=== PATIENT | female | born 1970 | race Caucasian/White ===

== ENCOUNTER → 2016-06-26 | Day surgery (SDC) | payer OTHER ==
[2016-06-12 13:55] VITALS: Ht 157.5 cm; Wt 113.6 kg
[~2016-06-26] VITALS: Ht 157.5 cm; Wt 113.6 kg
[~2016-06-26] MED LIST: CHOL20009 PO; CLR10 PO; CYCL5TAB PO; LIDOCAINE HCL 2% 2 ML VIAL (20MG/ML) ONE; LISI-725 PO; LISI-789 PO; LOPE1TAB25 PO; MIDAZOLAM HCL 1 MG/ML 2ML VIAL ONE; ONDANSETRON INJ 2 MG/ML 2 ML VIAL ONE; OXYC1CAP5 PO; PROPOFOL IV EMULSION 10 MG/ML 20 ML VIAL IV ONE; RANI150T3 PO; RMCI IV; SUMA25TA12 PO
--- NOTE | 2016-06-26 11:10 | Endo History and Physical ---
History & Physical Date of Service: Jun 26, 2016. Chief Complaint: GERD Referring Physician: History of Present Illness 45 yo CF who presents for EGD secondary to GERD. Past Medical History Gastrointestinal Disorder, Reflux Past Surgical History Hx Cardiac Surgery: No Hx Internal Defibrillator: No Hx Pacemaker: No Hx Abdominal Surgery: Yes (SM BOWEL RESECTION, LAP SRAVAN) Hx of Implantable Prosthesis: No Hx Post-Op Nausea and Vomiting: No Hx Cancer Surgery: No Hx Thoracic Surgery: No Hx Orthopedic: Yes (RT/LEFT KNEE ARTHROSCOPY) Hx Urinary Tract Surgery: No Family History IBD Social History Smoking Status: Never Smoker Hx Substance Use: Yes (SEE MED REC) Hx Alcohol Use: No Allergies Coded Allergies: Penicillins (Verified Allergy, Unknown, UNKNOWN RX - HAPPENED CHILD, ) Current Medications Reported Home Medications Medications Dose Route/Sig Max Daily Dose Days Date Category Dose Instructions Remicade (Infliximab) 100 Mg/10 Ml Inj IV DIRECTED 06/26/16 Reported patient unsure of dosage Imitrex (Sumatriptan Succinate) 25 Mg Tab 25 Mg PO UD PRN 06/12/16 Reported Zestril (Lisinopril) Unknown Strength Tab 1 Tab PO HS 06/12/16 Reported Flexeril (Cyclobenzaprine Hcl) 5 Mg Tab 5 Mg PO BID 06/12/16 Reported PRN Oxycodone Hcl 5 Mg Cap 1 Cap PO BID-QID PRN 06/12/16 Reported Claritin (Loratadine) 10 Mg Tab 10 Mg PO QAM 11/04/14 Reported Zantac (Ranitidine HCl) 150 Mg Tab 150 Mg PO BID 06/12/14 Reported Loperamide Hcl 2 Mg Tab 1-2 Cap PO QID PRN 06/10/14 Reported Vital Signs Weight (Kilograms): 113.64 Height (Feet): 5 Height (Inches): 2 Date Time Temp Pulse Resp B/P Pulse Ox O2 Delivery O2 Flow Rate FiO2 06/26/16 10:43 37 97 20 137/79 100 Room Air Physical Exam General Appearance: WD/WN, no apparent distress Respiratory/Chest: Auscultation: breath sounds normal Cardiovascular: Heart Auscultation: RRR Abdomen: Bowel Sounds: normal Inspection & Palpation: soft, non-distended, no tenderness, guarding & rebound Assessment and Plan Assessment: 45 yo CF who presents for EGD secondary to GERD. Plan: Proceed with EGD.
--- NOTE | 2016-06-26 11:53 | Discharge Instructions ---
Endoscopy Patient Instructions Date / Procedure(s) Performed Jun 26, 2016. EGD Allergy Information Coded Allergies: Penicillins (Verified Allergy, Unknown, UNKNOWN RX - HAPPENED CHILD, ) Discharge Date / Findings Jun 26, 2016. Gastritis s/p biopsies Hiatal hernia Distal Esophageal biopsies Mid-esophageal biopsies Provider Instructions Activity Restrictions - No exercising or heavy lifting for 24 hours. - Do not drink alcohol the day of the procedure. - Do not drive a car or operate machinery until the day after the procedure. - Do not make any important decisions or sign important papers in 24 hours after the procedure. Following Day: - Return to full activity which may include returning to work/school. Diet Start your diet with liquids and light foods (jello, soup, juice, toast). Then eat your usual diet if not nauseated. Treatment For Common After Affects For mild abdominal pain, bloating, or excessive gas: - Rest - Eat lightly - Lie on right side Follow-Up Information Follow-up with as scheduled Anesthesia Information What You Should Know You have had a procedure that required some medicine to reduce anxiety and discomfort. This treatment is called moderate sedation. After receiving the treatment, you may be sleepy, but you will be able to breathe on your own. The effects of the treatment may last for several hours. Follow these instructions along with Activity/Diet recommendations noted above: * Do NOT do anything where dizziness or clumsiness would be dangerous. * Rest quietly at home today, then you can be up and about tomorrow. * Have a responsible person stay with you the rest of today. * You may have had an I.V. today. If so, you may take the dressing off later today. Recommendations Call your doctor if: * Trouble breathing * Continuous vomiting for more than 24 hours * Temperature above 101 degrees * Severe abdominal pain or bloating * Pain not relieved by pain medicine ordered * There is increased drainage or redness from any incision * A large amount of rectal bleeding greater than 2-3 tablespoons. (If you had a polyp/s removed or have hemorrhoids, a small amount of blood - from the rectum is to be expected.) * You have any unanswered questions or concerns. IN THE EVENT OF A SERIOUS EMERGENCY, GO TO THE NEAREST EMERGENCY ROOM Your discharge instructions were prepared by provider Brice Nunez. Patient Instructions Signature Page Mary Jane Holman Patient (or Guardian) Signature/Date: I have read and understand the instructions given to me by my caregivers. Caregiver/RN/Doctor Signature/Date: The above-named patient and/or guardian has received patient instructions on this date. + Original Patient Signature Page (only) stays with chart. Please make copy for patient.
--- NOTE | 2016-06-26 12:02 | GI REPORT ---
Procedure Date: 06/26/2016 11:24 AM Procedure: Upper GI endoscopy Indications: Gastro-esophageal reflux disease Medicines: Monitored Anesthesia Care Complications: No immediate complications. Estimated Blood Loss: Estimated blood loss: none. Procedure: Pre-Anesthesia Assessment: - Prior to the procedure, a History and Physical was performed, and patient medications and allergies were reviewed. The patient's tolerance of previous anesthesia was also reviewed. The risks and benefits of the procedure and the sedation options and risks were discussed with the patient. All questions were answered, and informed consent was obtained. Prior Anticoagulants: The patient has taken no previous anticoagulant or antiplatelet agents. ASA Grade Assessment: III - A patient with severe systemic disease. After reviewing the risks and benefits, the patient was deemed in satisfactory condition to undergo the procedure. After obtaining informed consent, the endoscope was passed under direct vision. Throughout the procedure, the patient's blood pressure, pulse, and oxygen saturations were monitored continuously. The scope was introduced through the mouth, and advanced to the second part of duodenum. The upper GI endoscopy was accomplished without difficulty. The patient tolerated the procedure well. Findings: Four biopsies were obtained with cold forceps for evaluation of eosinophilic esophagitis in the middle third of the esophagus. The Z-line was irregular. Biopsies were taken with a cold forceps for histology. A small hiatus hernia was present. Localized mild inflammation characterized by erythema was found in the gastric antrum. Biopsies were taken with a cold forceps for histology. The examined duodenum was normal. Impression: - Z-line irregular. Biopsied. - Small hiatus hernia. - Gastritis. Biopsied. - Normal examined duodenum. - Biopsy performed in the middle third of the esophagus. Recommendation: - Resume previous diet. - Continue present medications. - Await pathology results. - Return to GI office as previously scheduled. Brice Nunez DO 06/26/2016 12:02:01 PM This report has been signed electronically. Note Initiated On: 06/26/2016 11:24 AM I attest to the content of the Intraoperative Record and orders documented therein, exceptions below
--- NOTE | 2016-06-26 12:06 | Anesthesiology Progress Note ---
Anesthesia Post Op Note Date & Time Jun 26, 2016 at 12:07 Vital Signs Pain Intensity: 0 Vital Signs Past 12 Hours Date Time Temp Pulse Resp B/P Pulse Ox O2 Delivery O2 Flow Rate FiO2 06/26/16 10:43 37 97 20 137/79 100 Room Air Notes Mental Status: alert / awake / arousable, participated in evaluation Pt Amnestic to Procedure: Yes Nausea / Vomiting: adequately controlled Pain: adequately controlled Airway Patency, RR, SpO2: stable & adequate BP & HR: stable & adequate Hydration State: stable & adequate Anesthetic Complications: no major complications apparent
[2016-06-26 12:20] VITALS: BP 109/65; PULSE 78; O2SAT 98
== END | disposition home or self-care (01) ==
LOC: C.GI 10:06
PROVIDERS: ATTEND Internal Medicine
DX: K29.50 Unspecified chronic gastritis without bleeding (principal); K21.9 Gastro-esophageal reflux disease without esophagitis; K44.9 Diaphragmatic hernia without obstruction or gangrene; Z80.0 Family history of malignant neoplasm of digestive organs

== ENCOUNTER → 2016-08-04 | Day surgery (SDC) | payer OTHER ==
[2016-08-03 13:57] VITALS: Ht 157.5 cm; Wt 113.6 kg
[~2016-08-04] VITALS: Ht 157.5 cm; Wt 113.6 kg
[~2016-08-04] MED LIST changes: +ATROPINE SULFATE 0.1 MG/ML 5ML SYR IV PRN; +EpHEDrine SULFATE INJ 50 MG/ML AMP IV PRN; -LISI-725 PO; -SUMA25TA12 PO
--- NOTE | 2016-08-04 09:49 | Endo History and Physical ---
History & Physical Date of Service: Aug 04, 2016. Chief Complaint: Crohn's Referring Physician: Dr Jordan History of Present Illness 45 yo CF who presents for Colonoscopy secondary to Crohn's Disease. Past Medical History Gastrointestinal Disorder, Reflux Past Surgical History Hx Cardiac Surgery: No Hx Internal Defibrillator: No Hx Pacemaker: No Hx Abdominal Surgery: Yes (SM BOWEL RESECTION, LAP SRAVAN) Hx of Implantable Prosthesis: No Hx Post-Op Nausea and Vomiting: No Hx Cancer Surgery: No Hx Thoracic Surgery: No Hx Orthopedic: Yes (RT/LT KNEE ARTHROSCOPY) Hx Urinary Tract Surgery: No Family History IBD Social History Smoking Status: Never Smoker Hx Substance Use: Yes (SEE MED LIST) Hx Alcohol Use: No Allergies Coded Allergies: Penicillins (Verified Allergy, Unknown, UNKNOWN RX - HAPPENED CHILD, 08/03/16) Current Medications Reported Home Medications Medications Dose Route/Sig Max Daily Dose Days Date Category Dose Instructions Zestril (Lisinopril) 2.5 Mg Tab 1 Tab PO HS 08/03/16 Reported Vitamin D (Cholecalciferol) 2,000 Unit Tab 1 Tab PO QAM 08/03/16 Reported Remicade (Infliximab) 100 Mg/10 Ml Inj IV DIRECTED 06/26/16 Reported patient unsure of dosage Flexeril (Cyclobenzaprine Hcl) 5 Mg Tab 5 Mg PO BID PRN 06/12/16 Reported PRN Oxycodone Hcl 5 Mg Cap 1 Cap PO BID-QID PRN 06/12/16 Reported Claritin (Loratadine) 10 Mg Tab 10 Mg PO QAM 11/04/14 Reported Zantac (Ranitidine HCl) 150 Mg Tab 150 Mg PO BID 06/12/14 Reported Loperamide Hcl 2 Mg Tab 1-2 Cap PO QID PRN 06/10/14 Reported Vital Signs Weight (Kilograms): 113.64 Height (Feet): 5 Height (Inches): 2 Physical Exam General Appearance: WD/WN, no apparent distress Respiratory/Chest: Auscultation: breath sounds normal Cardiovascular: Heart Auscultation: RRR Abdomen: Bowel Sounds: normal Inspection & Palpation: soft, non-distended, no tenderness, guarding & rebound Assessment and Plan Assessment: 45 yo CF who presents for Colonoscopy secondary to Crohn's Disease. Plan: Proceed with colonoscopy.
--- NOTE | 2016-08-04 11:15 | Discharge Instructions ---
Endoscopy Patient Instructions Date / Procedure(s) Performed Aug 04, 2016. Colonoscopy Allergy Information Coded Allergies: Penicillins (Verified Allergy, Unknown, UNKNOWN RX - HAPPENED CHILD, 08/03/16) Discharge Date / Findings Aug 04, 2016. Crohn's Ileitis s/p biopsies Random colon biopsies Medication Instructions OK to resume all medications today as prescribed Reported Home Medications Medications Dose Route/Sig Max Daily Dose Days Date Category Dose Instructions Zestril (Lisinopril) 2.5 Mg Tab 1 Tab PO HS 08/03/16 Reported Vitamin D (Cholecalciferol) 2,000 Unit Tab 1 Tab PO QAM 08/03/16 Reported Remicade (Infliximab) 100 Mg/10 Ml Inj IV DIRECTED 06/26/16 Reported patient unsure of dosage Flexeril (Cyclobenzaprine Hcl) 5 Mg Tab 5 Mg PO BID PRN 06/12/16 Reported PRN Oxycodone Hcl 5 Mg Cap 1 Cap PO BID-QID PRN 06/12/16 Reported Claritin (Loratadine) 10 Mg Tab 10 Mg PO QAM 11/04/14 Reported Zantac (Ranitidine HCl) 150 Mg Tab 150 Mg PO BID 06/12/14 Reported Loperamide Hcl 2 Mg Tab 1-2 Cap PO QID PRN 06/10/14 Reported Provider Instructions Activity Restrictions - No exercising or heavy lifting for 24 hours. - Do not drink alcohol the day of the procedure. - Do not drive a car or operate machinery until the day after the procedure. - Do not make any important decisions or sign important papers in 24 hours after the procedure. Following Day: - Return to full activity which may include returning to work/school. Diet Start your diet with liquids and light foods (jello, soup, juice, toast). Then eat your usual diet if not nauseated. Treatment For Common After Affects For mild abdominal pain, bloating, or excessive gas: - Rest - Eat lightly - Lie on right side Follow-Up Information Follow-up with Dr Jordan as scheduled Anesthesia Information What You Should Know You have had a procedure that required some medicine to reduce anxiety and discomfort. This treatment is called moderate sedation. After receiving the treatment, you may be sleepy, but you will be able to breathe on your own. The effects of the treatment may last for several hours. Follow these instructions along with Activity/Diet recommendations noted above: * Do NOT do anything where dizziness or clumsiness would be dangerous. * Rest quietly at home today, then you can be up and about tomorrow. * Have a responsible person stay with you the rest of today. * You may have had an I.V. today. If so, you may take the dressing off later today. Recommendations Call your doctor if: * Trouble breathing * Continuous vomiting for more than 24 hours * Temperature above 101 degrees * Severe abdominal pain or bloating * Pain not relieved by pain medicine ordered * There is increased drainage or redness from any incision * A large amount of rectal bleeding greater than 2-3 tablespoons. (If you had a polyp/s removed or have hemorrhoids, a small amount of blood - from the rectum is to be expected.) * You have any unanswered questions or concerns. IN THE EVENT OF A SERIOUS EMERGENCY, GO TO THE NEAREST EMERGENCY ROOM Your discharge instructions were prepared by provider Brice Nunez. Patient Instructions Signature Page Mary Jane Holman Patient (or Guardian) Signature/Date: I have read and understand the instructions given to me by my caregivers. Caregiver/RN/Doctor Signature/Date: The above-named patient and/or guardian has received patient instructions on this date. + Original Patient Signature Page (only) stays with chart. Please make copy for patient.
--- NOTE | 2016-08-04 11:24 | GI REPORT ---
Procedure Date: 08/04/2016 10:46 AM Procedure: Colonoscopy Indications: Disease activity assessment of Crohn's disease of the small bowel and colon Medicines: Monitored Anesthesia Care Complications: No immediate complications. Estimated Blood Loss: Estimated blood loss: none. Procedure: Pre-Anesthesia Assessment: - Prior to the procedure, a History and Physical was performed, and patient medications and allergies were reviewed. The patient's tolerance of previous anesthesia was also reviewed. The risks and benefits of the procedure and the sedation options and risks were discussed with the patient. All questions were answered, and informed consent was obtained. Prior Anticoagulants: The patient has taken no previous anticoagulant or antiplatelet agents. ASA Grade Assessment: III - A patient with severe systemic disease. After reviewing the risks and benefits, the patient was deemed in satisfactory condition to undergo the procedure. After I obtained informed consent, the scope was passed under direct vision. Throughout the procedure, the patient's blood pressure, pulse, and oxygen saturations were monitored continuously. The scope was introduced through the anus and advanced to the ileocolonic anastomosis. The colonoscopy was performed without difficulty. The patient tolerated the procedure well. The quality of the bowel preparation was good. The terminal ileum and the rectum were photographed. Findings: The yen-terminal ileum contained a few ulcers. No bleeding was present. Biopsies were taken with a cold forceps for histology. Multiple random biopsies were obtained with cold forceps for histology in the entire colon. Impression: - A few ulcers in the yen-terminal ileum. Biopsied. - Multiple random biopsies were obtained in the entire colon. Recommendation: - Resume previous diet. - Continue present medications. - Repeat colonoscopy for surveillance based on pathology results. - Return to primary care physician as previously scheduled. Brice Nunez DO 08/04/2016 11:23:26 AM This report has been signed electronically. Note Initiated On: 08/04/2016 10:46 AM I attest to the content of the Intraoperative Record and orders documented therein, exceptions below
[2016-08-04 11:43] VITALS: BP 115/77; PULSE 84; O2SAT 99
--- NOTE | 2016-08-04 11:49 | Anesthesiology Progress Note ---
Anesthesia Post Op Note Date & Time Aug 04, 2016 at 11:48 Vital Signs Pain Intensity: 0 Vital Signs Past 12 Hours Date Time Temp Pulse Resp B/P Pulse Ox O2 Delivery O2 Flow Rate FiO2 08/04/16 11:43 84 16 115/77 99 Room Air 08/04/16 11:28 81 16 139/85 98 Room Air 08/04/16 11:13 90 16 112/74 100 Room Air 08/04/16 09:45 36.7 90 18 135/77 96 Room Air Notes Mental Status: alert / awake / arousable, participated in evaluation Pt Amnestic to Procedure: Yes Nausea / Vomiting: adequately controlled Pain: adequately controlled Airway Patency, RR, SpO2: stable & adequate BP & HR: stable & adequate Hydration State: stable & adequate Anesthetic Complications: no major complications apparent
== END | disposition home or self-care (01) ==
LOC: C.GI 09:18
PROVIDERS: ATTEND Internal Medicine
DX: K50.00 Crohn's disease of small intestine without complications (principal); K63.3 Ulcer of intestine; K21.9 Gastro-esophageal reflux disease without esophagitis; Z98.0 Intestinal bypass and anastomosis status; Z90.49 Acquired absence of other specified parts of digestive tract; Z83.79 Family history of other diseases of the digestive system; Z88.0 Allergy status to penicillin